=== PATIENT | female | born 1995 | race Asian ===

== ENCOUNTER 2019-03-14 22:05 | Emergency (ER) | payer BC, OTHER | END 2019-03-14 23:36 | disposition home or self-care (01) | LOC: E/R 23:36 | DX: S93.422A Sprain of deltoid ligament of left ankle, initial encounter (principal); X58.XXXA Exposure to other specified factors, initial encounter; Y92.9 Unspecified place or not applicable | CPT/HCPCS: 73610; 99283-25 ==